=== PATIENT | male | born 1955 | race American Indian/Alaskan Native ===

== ENCOUNTER 2016-09-13 06:18 | Day surgery (SDC) | payer MEDICARE, BC ==
[2016-09-13 08:12] VITALS: BMI 26.9
[2016-09-13] MEDS ORDERED: Propofol 10 mg/ml Inj (20 ML) ONE (08:30)
[2016-09-13] MEDS ORDERED: Succinylcholine 200 mg/10 ml Inj IV ONE (08:30)
[2016-09-13] MEDS ORDERED: Rocuronium 10 mg/ml (5 ml) ONE (08:30)
[2016-09-13] MEDS ORDERED: Bupivacaine 0.5% Inj(30mL) ONE (08:31)
[2016-09-13] MEDS ORDERED: Lidocaine 1% Inj (20ml) ONE (08:31)
[2016-09-13] MEDS ORDERED: Midazolam 2 MG/2 ML VIAL ONE (09:39)
[2016-09-13] MEDS ORDERED: Etomidate 20 mg/10ml Inj IV ONE (09:39)
[2016-09-13] MEDS ORDERED: HYDROmorphone 0.5 mg/0.5 ml ISec IVP PRN (11:06)
--- NOTE | 2016-09-13 11:11 | PCM.SURG1 ---
Surgeon's Initial Post Op Note - Surgeon's Notes Surgeon: Jewels Dust Control Engineer: [id number] Type of Anesthesia: IV Sedation, Local Pre-Operative Diagnosis: Infected PD catheter Operative Findings: see op note Post-Operative Diagnosis: Infected PD catheter Operation Performed: Laparotomy, Infected PD catheter removal Specimen/Specimens Removed: PD catheter Estimated Blood Loss: EBL {In ML}: 5 Blood Products Given: N/A Drains Used: No Drains Post-Op Condition: Good Date of Surgery/Procedure: 09/13/16 Time of Surgery/Procedure: 09:30
[2016-09-13] MEDS ORDERED: Sodium Chloride 0.9% 1,000 ML IV SCH (11:15)
[2016-09-13] MEDS ORDERED: HYDROmorphone 0.5 mg/0.5 ml ISec ONE (11:53)
[2016-09-13] MEDS ORDERED: HYDROmorphone 0.5 mg/0.5 ml ISec IVP ONE (11:55)
[2016-09-13 12:07] VITALS: RESP 18
[2016-09-13] MEDS ORDERED: Oxycodone/Acetaminophen 5/325 mg Tab PO PRN (12:52)
[2016-09-13 13:12] VITALS: TEMP 97.7
[2016-09-13] MEDS ORDERED: Oxycodone/Acetaminophen 5/325 mg Tab ONE (14:45)
[2016-09-13] MEDS ORDERED: Oxycodone/Acetaminophen 5/325 mg Tab PO ONE (14:46)
[2016-09-13 15:37] VITALS: O2SAT 98
[2016-09-13 17:35] VITALS: BP 174/68; PULSE 56
[2016-09-13] MEDS ORDERED: Aspirin-Dipyridamole 200-25 mg ER Cap PO SCH (18:00)
[2016-09-14] MEDS ORDERED: Non Formulary Medication (Linaclotide [Linzess] 290 MCG) PO SCH (10:00)
[2016-09-17] MEDS ORDERED: Ergocalciferol 50,000 Intl Units Cap PO SCH ×2 (10:00)
--- NOTE | 2016-09-25 23:37 | PCM.OP ---
Operative Report - Operative Report Date of Surgery/Procedure: 09/13/16 Time of Surgery/Procedure: 11:00 Surgeon: Dr Donis Rural Carrier: Dr. Garcia, Anesthesia/Sedation: IV sedation Pre-Operative Diagnosis: Infected peritoneal dialysis catheter Post-Operative Diagnosis: same Indication for Surgery: Infected PD catheter Operative Findings: PD Catheter Procedure/Operation Description: Laparoptomy,. Removal of tunelled peritoneal dialysis catheter Estimated Blood Loss: 5cc Blood Replaced: none Complications: Intraperitoneally Ingrown catheter cuff, laparotomy for catheter removal Specimen: catheter tip for cultures Discharge & Condition: Patient discharged home to resume all his preop meds. Follow up in office in 2 weeks
--- NOTE | 2016-10-08 04:17 | OP ---
PROCEDURE DATE: 09/13/2016 PREOPERATIVE DIAGNOSIS: Infected peritoneal dialysis tunneled catheter. POSTOPERATIVE DIAGNOSIS: Infected peritoneal dialysis tunneled catheter. PROCEDURES PERFORMED: 1. Exploratory laparotomy. 2. Removal of the tunneled peritoneal dialysis catheter. SURGEON: Dr. Donis. SENIOR SAS DEVELOPER: Dr. Garcia. ANESTHESIOLOGIST: Dr. Stafford. TYPE OF ANESTHESIA: IV sedation, local anesthesia. ESTIMATED BLOOD LOSS: Minimal. SPECIMEN: Tip of the catheter for other cultures. The patient is 60-year-old male on renal dialysis who had for a period of time had peritoneal dialysis catheter inserted; however, subsequently patient developed symptoms of infection and catheter could not be used any longer and a decision was made to remove the catheter in order to alleviate his infection. DESCRIPTION OF PROCEDURE: The patient was brought to the operating room and placed on the operative table in supine position. The patient was connected to the EKG, blood pressure, and pulse oximetry monitors. The patient then underwent IV sedation, was prepped and draped in the usual sterile fashion. First then the extended time-out procedure took place and everybody in the room agreed as to the patient's identity diagnosis and procedure to be performed. Using lidocaine and some Marcaine, 2 areas of skin direct to overlying the catheter *------* cath were injected and careful dissection was done in order to free up the attachments of the catheter to the subcutaneous tissues. This was carefully done and then the extension of the peritoneal dialysis catheter was freed up, transected and removed. I then proceeded further towards the periumbilical incision where another *------* cath was located at the edge of the peritoneum. This was carefully dissected out; however, at some point, the catheter gave in and ruptured and an intraperitoneal portion of the catheter could not be retrieved. At this point, I decided to proceed with the small laparotomy incision just below the umbilicus and carefully dissected out through into the abdominal cavity. Careful reevaluation of the abdominal cavity revealed a peritoneal dialysis catheter which was firmly attached to adhesions at the anterior abdominal wall as well as to the lateral pelvic wall. This was carefully lysed and the catheter was detached and removed. The laparotomy was now carefully closed using #1 PDS in a running fashion. Subcutaneous tissues were closed using 3-0 Vicryl and the skin was closed with 4-0 Monocryl in all 4 wounds. The tip of the catheter was sent as a specimen for the cultures to the pathology lab. The patient tolerated the procedure well and there were no complication. The patient was awakened and transferred to recovery room for further observation. Chalo Donis MD
== END 2016-09-13 17:00 | disposition home or self-care (01) ==
LOC: SDS 06:18
PROVIDERS: ATTEND General Practice
DX: T85.71XA Infection and inflammatory reaction due to peritoneal dialysis catheter, initial encounter (principal); N18.6 End stage renal disease; I12.0 Hypertensive chronic kidney disease with stage 5 chronic kidney disease or end stage renal disease; E11.22 Type 2 diabetes mellitus with diabetic chronic kidney disease; I25.10 Atherosclerotic heart disease of native coronary artery without angina pectoris; Y84.8 Other medical procedures as the cause of abnormal reaction of the patient, or of later complication, without mention of misadventure at the time of the procedure
CPT/HCPCS: 49422; 87070; 87075; J0360; J0690; J1170; J2250; J2704; J3010; J7040

== ENCOUNTER 2018-01-08 13:41 | Inpatient (IN) | payer MEDICARE, BC ==
[2018-01-08 13:58] VITALS: BMI 25.8
--- NOTE | 2018-01-08 14:06 | ED PDOC ---
Arrival/HPI - General Chief Complaint: Weakness/Neurological Deficit Time Seen by Provider: 01/08/18 14:05 Historian: EMS EM Caveat: Acuity of Condition - History of Present Illness Narrative History of Present Illness (Text): 01/08/18 14:06 62 year old male whose past medical history includes CVA and chronic kidney disease(on dialysis), who was brought to the Emergency department by EMS for stroke evaluation and generalized weakness. Patient returns to the Emergency department complaining of generalized weakness for the past 24 hours. He received dialysis this morning when he started to feel disoriented and unable to speak clearly. EMS noted slight slurred speech, but denies history of left sided weakness from previous CVA. Limited HPI and ROS due to acuity of condition Time/Duration: Other (Right after dialysis) Symptom Onset: Sudden Symptom Course: Unchanged Severity Level: Moderate Activities at Onset: Rest Context: Other (while at dialysis center) Past Medical History - Provider Review Nursing Documentation Reviewed: Yes - Travel History Have you recently traveled outside [place] w/in the past 3 mons?: No - Infectious Disease Hx of Infectious Diseases: None - Tetanus Immunization Tetanus Immunization: Unknown - Cardiac Hx Pacemaker: No - Pulmonary Hx Respiratory Disorders: Yes - Neurological Hx Paralysis: No - HEENT Hx HEENT Disorder: No - Renal Hx Dialysis: Yes Type of Dialysis Access: L AV shunt Date of Last Dialysis Treatment: 01/08/18 Hx Renal Failure: Yes - Endocrine/Metabolic Hx Diabetes Mellitus Type 2: Yes - Hematological/Oncological Hx Blood Transfusions: No Hx Blood Transfusion Reaction: No - Integumentary Hx Dermatological Disorder: No - Musculoskeletal/Rheumatological Hx Musculoskeletal Disorders: No - Gastrointestinal Hx Gastrointestinal Disorders: No - Genitourinary/Gynecological Hx Genitourinary Disorders: No - Psychiatric Hx Emotional Abuse: No Hx Physical Abuse: No Hx Substance Use: Yes - Surgical History Hx Coronary Stent: Yes (2011 Coronary Stent Placement) Hx Tonsillectomy: Yes Hx Vascular Access Device: Yes (LEFT AV shunt for HD) Other/Comment: Peritoneal Dialysis access - Anesthesia Hx Anesthesia Reactions: No Hx Malignant Hyperthermia: No - Suicidal Assessment Feels Threatened In Home Enviroment: No Family/Social History - Physician Review Nursing Documentation Reviewed: Yes Family/Social History: No Known Family HX Smoking Status: Former Smoker Hx Alcohol Use: Yes Hx Substance Use: Yes Hx Substance Use Treatment: No Allergies/Home Meds Allergies/Adverse Reactions: Allergies No Known Allergies Allergy (Verified 12/16/15 00:13) Home Medications: Home Meds Medication Instructions Recorded Confirmed RX: Clopidogrel [Plavix] 75 mg PO DAILY 12/23/15 01/08/18 Ergocalciferol (Vitamin D2) 50,000 unit PO MON 09/11/16 01/08/18 [Vitamin D2] GlipiZIDE [Glucotrol] 5 mg PO DAILY 09/11/16 01/08/18 Linaclotide [Linzess] 290 mcg PO DAILY 09/11/16 01/08/18 RX: Carvedilol [Coreg] 12.5 mg PO BID 09/11/16 01/08/18 RX: amLODIPine [Norvasc] 10 mg PO QPM 09/11/16 01/08/18 RX: hydrALAZINE [Apresoline] 50 mg PO BID 09/11/16 01/08/18 Ketorolac Tromethamine [Toradol] 10 mg PO Q6H PRN 09/13/16 01/08/18 Review of Systems - Review of Systems Systems not reviewed;Unavailable: Acuity of Condition Constitutional: Other (generalized weakness) Neurological: Speech Changes Physical Exam Vital Signs Reviewed: Yes Vital Signs Temp Pulse Resp BP Pulse Ox 01/08/18 14:01 103.1 F H 118 H 18 95/56 L 96 01/08/18 13:42 103 F H 117 H 22 95/56 L 95 Temperature: Febrile Blood Pressure: Hypotensive Pulse: Tachycardic Appearance: Positive for: Well-Appearing Mental Status: Positive for: Alert and Oriented X 3 Finger Stick Blood Glucose: 173 - Systems Exam Head: Present: Atraumatic, Normocephalic Pupils: Present: PERRL Extroacular Muscles: Present: EOMI Conjunctiva: Present: Normal Mouth: Present: Moist Mucous Membranes Neck: Present: Normal Range of Motion Respiratory/Chest: Present: Clear to Auscultation, Good Air Exchange. No: Respiratory Distress, Accessory Muscle Use, Tachypneic Cardiovascular: Present: Normal S1, S2, Tachycardic. No: Murmurs Abdomen: Present: Other (Abdomen soft). No: Tenderness, Distention, Peritoneal Signs Back: Present: Normal Inspection Upper Extremity: Present: Normal Inspection, Other ( palpable AV fistula of left upper extremity with audible thrill.). No: Cyanosis, Edema Lower Extremity: Present: Normal Inspection. No: Edema Neurological: Present: GCS=15, CN II-XII Intact, Normal Sensory Function, Other (able to squeeze hand bilaterally; Unable to lift right lower extremity against gravity.). No: Speech Normal (mild dysarthria noted) Skin: Present: Warm, Dry, Normal Color. No: Rashes Psychiatric: Present: Alert, Oriented x 3, Normal Insight, Normal Concentration Medical Decision Making ED Course and Treatment: 01/08/18 14:06 Impression: 62 year old male who presents with generalized weakness for the past 24 hours and evaluation for possible stroke. Differential Diagnosis included but are not limited to: CVA Hypokalemia Fluid shift Sepsis Plan: -- VBG -- Head CT without contrast -- EKG -- Labs -- Cardiac enzymes -- Blood work -- Chest X-ray -- Blood culture -- O2 via nasal cannula -- Tylenol -- IV fluids -- Reassess and disposition Prior Visits: Notes and results from previous visits were reviewed. Patient was last seen in the emergency department on 12/20/15 for slurred speech and facial droop. He was diagnosed with CVA and admitted. Progress Notes: 01/08/18 13:57 Code stroke called. 01/08/18 14:32 Discussed case with (neurology) who requests brain MRI. 01/08/18 14:[address] Hall(radiologist)who has okayed MRI. 01/08/18 14:57 Patient's potassium noted to be 8.3 with Leukocytosis of 18. Will order hyperkalemia protocol. 01/08/18 15:[address] Flores(hospitalist) who says ICU is not needed at this time. He will continue to monitor and agrees with antibiotics coverage. He will ask patient for true primary. 01/08/18 16:[address] Vargas, who will follow-up with patient. 01/12/18 00:27 - Critical Care Critical Care Minutes: Other (40 minutes) - Lab Interpretations Lab Results: Lab Results 01/08/18 13:56: POC Glucose (mg/dL) 173 H I have reviewed the lab results: Yes - RAD Interpretation Narrative RAD Interpretations (Text): 01/08/18 14:[address] without Contrast: Dictated by: Dr.Peter Hall Impression: No evidence of acute infarct. No intracranial hemorrhage. Old lucanar infarcts of the left thalamus and basal ganglia/verdugo radiata and of the analia. Age- appropriate atrophy. The findings in this examination were discussed by telephone with at 2:40p.m. on 01/08/18. 01/08/18 16:11 Brain MRI without contrast: Dictator : Timbo Seaman MD FINDINGS: HEMORRHAGE: None DWI: No evidence of an acute or early subacute infarction. BRAIN PARENCHYMA: No mass effect or edema. Chronic microvascular ischemic changes. VENTRICLES: Unremarkable. No hydrocephalus. CRANIUM: Unremarkable. ORBITS: Grossly unremarkable. PARANASAL SINUSES/MASTOIDS: Clear VASCULAR SYSTEM: Skull base flow voids intact. OTHER FINDINGS: None. IMPRESSION: Chronic microvascular ischemic changes. No evidence of acute infarct. 01/08/18 16:12 Chest X-ray: Dictator : Juvenal Sun MD IMPRESSION: No active disease. Radiology Orders: 01/08/18 14:04 HEAD W/O (CODE STROKE) [CT] Stat 01/08/18 14:05 CHEST PORTABLE [RAD] Stat Salvage Engineer: Radiologist - EKG Interpretation EKG Interpretation (Text): 01/08/18 13:59 EKG shows sinus tachycardia at 110 bpm with PT wave noted in precordial leads. Interpreted by me. Interpreted by ED Physician: Yes Type: 12 lead EKG NIHSS Scale (Walls) Time Performed: 14:00 - How Severe is the Stoke Baseline Level of Consciousness: 0=Alert LOC to Questions: 0=Both comments correct LOC to commands: 0=Obeys both correctly Best Gaze: 0=Normal Visual: 0=No visual loss Facial: 0=Normal Motor Arm - Left: 0=No drift Motor Arm - Right: 0=No drift Motor Leg - Left: 0=No drift Motor Leg - Right: 3=No effort against gravity (falls immediately) Limb Ataxia: 0=Absent Sensory: 0=Normal Best Language: 0=No aphasia Dysarthia: 1=Mild to moderate slurring Extinction & Inattention (Neglect): 0=Normal, no object Score: 4 Risk Level: Minor Stroke Risk - Scribe Statement The provider has reviewed the documentation as recorded by the Scribshana Romeo Provider Scribe Attestation: All medical record entries made by the Scribe were at my direction and personally dictated by me. I have reviewed the chart and agree that the record accurately reflects my personal performance of the history, physical exam, medical decision making, and the department course for this patient. I have also personally directed, reviewed, and agree with the discharge instructions and disposition. Disposition/Present on Arrival - Present on Arrival Any Indicators Present on Arrival: Yes History of DVT/PE: Yes History of Uncontrolled Diabetes: Yes Urinary Catheter: No History of Decub. Ulcer: No History Surgical Site Infection Following: None - Disposition Have Diagnosis and Disposition been Completed?: Yes Diagnosis: CVA (cerebral vascular accident) Disposition: HOSPITALIZED Disposition Time: 16:15 Patient Plan: Admission Condition: FAIR
[2018-01-08] MEDS ORDERED: Sodium Chloride 0.9% 1,000 ML IV STA ×2 (14:11→18:45)
[2018-01-08 14:30] LABS: BASO # 0.02 K/mm3 (0.0-2.0); BASO % 0.1 % (0.0-3.0); GRAN # 16.05 (1.4-6.5); GRAN % 86.5 % (50.0-68.0); HEMOGLOBIN 11.9 g/dL (14.0-18.0); LYMPH # 1.1 (1.2-3.4); LYMPH % 5.7 % (22.0-35.0); MEAN CORPUSCULAR HGB CONC 33.3 g/dl (31.0-37.0); MEAN PLATELET VOLUME 10.9 fl (7.0-11.0); MONO # 1.4 (0.1-0.6); MONO % 7.7 % (1.0-6.0); RBC 3.84 10^6/uL (3.5-6.1); RED CELL DISTRIBUTION WIDTH 15.9 % (11.5-14.5); WHITE BLOOD COUNT 18.6 10^3/ul (4.5-11.0)
[2018-01-08 14:37] LABS: VENOUS BLOOD GAS BASE EXCESS 3.4 mmol/L (0.0-2.0); VENOUS BLOOD GAS PO2 69 mm/Hg (30-55); VENOUS BLOOD PH 7.48 (7.32-7.43)
[2018-01-08 14:41] LABS: INR 1.1; PARTIAL THROMBOPLASTIN TIME 26.7 Seconds (25.1-36.5); PROTHROMBIN TIME 12.6 SECONDS (9.4-12.5)
--- NOTE | 2018-01-08 14:51 | CT ---
Date of service: 01/08/2018 PROCEDURE: CT HEAD WITHOUT CONTRAST. HISTORY: weakness/slurred speech COMPARISON: 10/06/2012 TECHNIQUE: Axial computed tomography images were obtained through the head/brain without intravenous contrast. Radiation dose: Total exam DLP = 1019.72 mGy-cm. This CT exam was performed using one or more of the following dose reduction techniques: Automated exposure control, adjustment of the mA and/or kV according to patient size, and/or use of iterative reconstruction technique. FINDINGS: HEMORRHAGE: No intracranial hemorrhage. BRAIN: No mass effect or edema. Mild diffuse atrophy. Consistent with patient age. Old left basal ganglia/verdugo radiata lacunar infarct unchanged. Old left thalamic lacunar infarct, unchanged. Two pontine lacunar infarcts, larger on the left, new since prior examination. No evidence of acute infarct. VENTRICLES: Unremarkable. No hydrocephalus. CALVARIUM: Unremarkable. PARANASAL SINUSES: Unremarkable as visualized. No significant inflammatory changes. MASTOID AIR CELLS: Unremarkable as visualized. No inflammatory changes. OTHER FINDINGS: None. IMPRESSION: No evidence of acute infarct. No intracranial hemorrhage. Old lacunar infarcts of the left thalamus and basal ganglia/verdugo radiata and of the analia. Age-appropriate atrophy. The findings in this examination were discussed by telephone with Dr. Olivas at 2:40 p.m. on 01/08/2018.
[2018-01-08] MEDS ORDERED: Albuterol 0.083% Inhal Sol (2.5 mg/3 mL) UD INH STA (14:56)
[2018-01-08] MEDS ORDERED: Sodium Bicarbonate (8.4%) 50 Meq Syringe IVP ONE (14:56)
--- NOTE | 2018-01-08 15:22 | RAD ---
Date of service: 01/08/2018 PROCEDURE: CHEST RADIOGRAPH, 1 VIEW HISTORY: weakness COMPARISON: 09/11/2016 FINDINGS: LUNGS: Clear. PLEURA: No pneumothorax or pleural fluid seen. CARDIOVASCULAR: Normal. OSSEOUS STRUCTURES: No significant abnormalities. VISUALIZED UPPER ABDOMEN: Normal. OTHER FINDINGS: None. IMPRESSION: No active disease.
[2018-01-08 15:28] LABS: ALB/GLOB RATIO 0.9 (1.1-1.8); ALBUMIN 4.1 g/dL (3.0-4.8); CALCIUM 9.2 mg/dL (8.4-10.5)
[2018-01-08] MEDS ORDERED: cefTRIAXone 1 gm 1 GM/100 ML BAG IVPB STA (15:34)
[2018-01-08 15:39] LABS: TROPONIN I 0.03 ng/mL
--- NOTE | 2018-01-08 16:05 | MRI ---
Date of service: 01/08/2018 PROCEDURE: MRI BRAIN WITHOUT CONTRAST HISTORY: dysarthria w/ inability to elevate RLE on exam COMPARISON: None available. TECHNIQUE: Multiplanar, multisequence MR images of the brain were obtained without intravenous contrast enhancement. FINDINGS: HEMORRHAGE: None DWI: No evidence of an acute or early subacute infarction. BRAIN PARENCHYMA: No mass effect or edema. Chronic microvascular ischemic changes. VENTRICLES: Unremarkable. No hydrocephalus. CRANIUM: Unremarkable. ORBITS: Grossly unremarkable. PARANASAL SINUSES/MASTOIDS: Clear VASCULAR SYSTEM: Skull base flow voids intact. OTHER FINDINGS: None. IMPRESSION: Chronic microvascular ischemic changes. No evidence of acute infarct.
[2018-01-08] MEDS ORDERED: Aspirin-Dipyridamole 200-25 mg ER Cap PO SCH (18:45)
[2018-01-08] MEDS ORDERED: Vancomycin 500mg in NS 500 MG/100 ML BAG IVPB STA (18:46)
[2018-01-08 18:55] LABS: HDL CHOLESTEROL 26 mg/dL (29-60)
[2018-01-08 20:03] LABS: LDL CHOLESTEROL 70 mg/dL (0-129)
[2018-01-08] MEDS: Insulin Reg-LOW-Coverage SC SCH (22:44)
[2018-01-08] MEDS ORDERED: Pneumococcal 23-Valent Vaccine IM ONE (23:05)
[2018-01-09 07:14] LABS: BASO # 0.03 K/mm3 (0.0-2.0); BASO % 0.2 % (0.0-3.0); EOS % 0.1 % (1.5-5.0); GRAN # 10.59 (1.4-6.5); GRAN % 81.4 % (50.0-68.0); HEMOGLOBIN 12.4 g/dL (14.0-18.0); LYMPH # 1.1 (1.2-3.4); LYMPH % 8.8 % (22.0-35.0); MEAN CELL VOLUME 94.9 fl (80.0-105.0); MEAN CORPUSCULAR HEMOGLOBIN 30.1 pg (25.0-35.0); MEAN CORPUSCULAR HGB CONC 31.7 g/dl (31.0-37.0); MEAN PLATELET VOLUME 10.9 fl (7.0-11.0); MONO # 1.2 (0.1-0.6); MONO % 9.5 % (1.0-6.0); RBC 4.12 10^6/uL (3.5-6.1); RED CELL DISTRIBUTION WIDTH 15.8 % (11.5-14.5)
[2018-01-09] MEDS ORDERED: Vancomycin 1gm in NS 250ml 1 GM/250 ML BAG IVPB STA (07:23)
--- NOTE | 2018-01-09 07:38 | HP ---
DATE OF EXAM: HISTORY OF PRESENT ILLNESS: The patient is 62 years old, the patient of Dr. Witt, was sent from dialysis center after he was found to be lethargic and had slurred speech, so he was brought to the emergency room. He was also found to have temperature of 103.7. The patient denies any cough, congestion, no chest pain, no shortness of breath. He denies any nausea or vomiting. PAST MEDICAL HISTORY: Significant for: 1. Hepatitis C. 2. End-stage renal disease, on hemodialysis. 3. Non-insulin dependent diabetes. 4. Peripheral vascular disease. ALLERGIES: HE IS NOT ALLERGIC TO ANY MEDICATIONS. MEDICATIONS: Medications at home, he is on hydralazine 50 mg twice a day, clonidine 0.2 three times a day, amlodipine 10 mg daily, Linzess, isosorbide 60 mg daily, Lipitor 5 mg daily, vitamin D, Plavix 75 daily, Coreg 12.5 twice a day, PhosLo 667, mg bedtime and Aggrenox. SOCIAL HISTORY: He used to be a heavy smoker, quit 20 years ago. PHYSICAL EXAMINATION: GENERAL: He is sleepy, but arousable. VITAL SIGNS: His temperature of 103.7 upon arrival, at 05:30 it is 99.8, pulse 91, respirations 18 and blood pressure 126/70. LUNGS: Bilateral fair airflow. No rhonchi or crackle. HEART: S1 and S2 audible. ABDOMEN: Soft. Nontender. No rebound. No guarding. NEUROLOGICAL: The patient is lethargic, but no focal deficit noted. LABORATORY DATA: WBC is 18.6, hemoglobin 11.9, hematocrit 35.7 and platelets 188. PT 12.6, INR 1.10 and PTT 26.7. Chemistry: Sodium 135, potassium 4.4, chloride 94, CO2 of 26, BUN 26, creatinine 8, blood sugar of 208. Triglycerides 165, random blood sugar is 208. IMAGING: MRI of the brain is unremarkable. X-ray chest only shows chronic microvascular ischemic changes, no evidence of acute infarct. X-ray chest is negative. ASSESSMENT: 1. High-grade fever. 2. Leukocytosis, source unknown yet. 3. Sepsis syndrome. 4. End-stage renal disease, on hemodialysis. 5. Hypertension. 6. Dnt-ldohtwi-fhhmeraxt diabetes. 7. Hyperlipidemia. PLAN: The patient has failed swallowing eval, we will keep him n.p.o. We will give him IV fluid, empirically give him vancomycin 500 mg stat and Rocephin is [address] Witt and Dr. Grande has been consulted. Kali Stringer MD
[2018-01-09 08:01] LABS: ALBUMIN 3.9 g/dL (3.0-4.8); CALCIUM 9.4 mg/dL (8.4-10.5)
[2018-01-09] MEDS: Insulin Reg-LOW-Coverage SC SCH ×4 (08:27→23:00)
--- NOTE | 2018-01-09 10:36 | CARD ---
APPROVED REPORT Date of service: 01/08/2018 EKG Measurement Heart [id number] <Conclusion> Sinus tachycardia PRWP STTW changes c/w ischemia, new
[2018-01-09] MEDS: Aspirin-Dipyridamole 200-25 mg ER Cap PO SCH ×2 (12:11→18:11)
--- NOTE | 2018-01-09 13:10 | PN ---
DATE: 01/09/2018 SUBJECTIVE: Patient is 62 years old, seen and examined, looks much more alert, was able to tolerate food. PHYSICAL EXAMINATION: VITAL SIGNS: His temperature 100.1, pulse 91, respirations 19, and blood pressure 146/66. LUNGS: Bilateral good air flow. No rhonchi or crackle. HEART: S1, S2 audible. ABDOMEN: Soft, nontender. No rebound, no guarding. NEUROLOGIC: Patient is awake and alert, communicative. EXTREMITIES: Bilateral leg, no edema. He has Sherwood catheter in his left groin. LABORATORY DATA: WBC 13, hemoglobin 12.4, hematocrit 39.1, and platelets 145. Chemistry: Sodium 137, potassium 5.3, chloride 96, CO2 of 23. BUN 40, creatinine 10. Blood sugar is 122. Blood cultures are pending. Echocardiogram is pending. MRI of the brain is negative. ASSESSMENT: 1. Sepsis, source unknown yet, probably line sepsis. 2. Hypertension. 3. End-stage renal disease, on hemodialysis. 4. Cerebrovascular accident in the past. PLAN: So patient was given dose of vancomycin last night and he got another one this morning. We will discontinue his IV fluid. He has been started on meropenem, statin, and isosorbide. We will monitor his blood sugar. We will follow up patient in the a.m. Kali Stringer MD
--- NOTE | 2018-01-09 18:03 | CON ---
DATE OF CONSULTATION: 01/09/2018 REASON FOR CONSULTATION: Hyperkalemia, ESRD, fatigue. HISTORY OF PRESENT ILLNESS: The patient is a 62-year-old male, well known to me from outpatient hemodialysis. The patient was sent to the emergency room yesterday from dialysis because of fatigue and weakness. The patient denied any fever, chills. He denied any cough. He denied any shortness of breath. In the emergency room, he was found to be somewhat slurred speech, emotionally labile, crying. He was found to be hemodynamically stable. Blood pressure was somewhat low at 95/56, he had a temperature of 103, he was found to have an elevated WBC count of 18.6. This morning, his potassium was found to be 5.3, hence consultation is requested. PAST MEDICAL AND SURGICAL HISTORY: Hepatitis C, severe hypertension, ESRD, NIDDM, peripheral vascular disease, CVA, anemia of chronic kidney disease, diverticulosis, diverticulitis, failed PD, ESRD. FAMILY HISTORY: Noncontributory. SOCIAL HISTORY: Ex-smoker, no alcohol use, no IV drug abuse. MEDICATIONS AT HOME: Hydralazine 50 b.i.d., clonidine 0.2 t.i.d., amlodipine 10, Linzess, Imdur 60, glipizide 5, vitamin D 50,000, Plavix 75, Coreg 12.5 b.i.d., PhosLo, Lipitor, aspirin. ALLERGIES: NO KNOWN DRUG ALLERGIES. REVIEW OF SYSTEMS: All systems are reviewed, pertinent positives as mentioned in the history of presenting illness, rest unremarkable. PHYSICAL EXAMINATION: GENERAL: The patient is an elderly male, lying in bed. VITAL SIGNS: Blood pressure 115/54, heart rate 94, respiratory rate 18, temperature 100. HEENT: Normocephalic, atraumatic, positive pallor. NECK: Supple, no JVD. LUNGS: Bilateral equal entry, bilateral equal expansion, no rales. CARDIAC: S1 and S2, regular rate and rhythm, no murmur, no rub. ABDOMEN: Soft, nondistended, nontender, bowel sounds present. EXTREMITIES: No lower extremity edema. INTAKE AND OUTPUT: Not charted. LABORATORY DATA: WBC 13, hemoglobin 12.4, hematocrit 39, platelets 145. Sodium 137, potassium 5.3, chloride 96, CO2 of 23, BUN 40, creatinine 10.1, glucose 122, calcium 9.4, total protein 7.9, albumin 3.9. CURRENT MEDICATIONS: Aggrenox, insulin, Imdur 60, Lipitor 40, meropenem 250 every 12 hours, amlodipine 10, Tylenol, Zofran, vancomycin 1 g given this morning. ASSESSMENT: 1. Fever, leukocytosis, hypotension, sepsis,? source. 2. Oco-zajwcri-idhlxsfhk diabetes mellitus. 3. Hypertension. 4. History of cerebrovascular accident. 5. End-stage renal disease. 6. Hyperkalemia. PLAN: 1. Dialysis today, blood cultures x2 on dialysis. 2. Agree with empiric antibiotics. 3. Follow up blood cultures. 4. Hold antihypertensives for BP less than 120. 5. ID evaluation. 6. Neurology evaluation. Sabine Witt MD
--- NOTE | 2018-01-09 19:08 | CON ---
DATE: 01/09/2018 CHIEF COMPLAINT: Fever x1-2 days. HISTORY OF PRESENT ILLNESS: This is a 62-year-old male with a history of cerebrovascular accident, chronic renal failure on hemodialysis who was admitted through the emergency room from having weakness and feeling is having fevers and chills. He denies any chest pain. He has minimal cough. He has mild shortness of breath. No abdominal pain, diarrhea or constipation or bright red blood per rectum. No melena, dysuria, or frequency. REVIEW OF SYSTEMS: As stated 12-point review system is performed. PAST MEDICAL HISTORY: Significant for cerebrovascular accident, chronic renal failure on hemodialysis, coronary artery disease, hypertension, diabetes mellitus, peripheral vascular disease, and peripheral arterial disease. PAST SURGICAL HISTORY: Significant for cardiac catheterization with stent placement, tonsillectomy, left arm shunt, hepatitis B and hepatitis C, left arm vascular shunt. ALLERGIES: THE PATIENT HAS NO KNOWN ALLERGIES. MEDICATIONS: Reviewed at home include Apresoline, Catapres, Norvasc and Glucotrol. PHYSICAL EXAMINATION: GENERAL: He is in bed in no acute distress. He is responsive. VITAL SIGNS: Temperature of 103 in the emergency room, heart rate was 118 and blood pressure of 153, at this time it was down to 95/56 on admission with a respiratory rate of 22. HEENT: Unremarkable. NECK: Supple. LUNGS: Decreased breath sounds. HEART: Normal S1, S2. ABDOMEN: Soft, nontender. No organomegaly. No rebound or guarding. No masses. The patient does have a right groin catheter a left arm AV shunt. It appears to be intact. No evidence of infection. LABORATORY EXAMINATION: Reveals a white count of 18,600 and a hemoglobin of 11, platelets of 188. Coagulation is noted. Chemistry reveals BUN of 26, creatinine of 8. The patient had MRI of the head which is negative. CAT scan of the head which is negative. Chest x-ray which is negative. EKG: Results are not available. Review of orders reveals blood cultures were ordered and the patient was given ceftriaxone and a dose of vancomycin at 500 mg. ASSESSMENT AND PLAN: This is a 62-year-old male with cerebrovascular accident, chronic renal failure, hemodialysis, coronary artery disease, hypertension, diabetes, peripheral arterial disease, hepatitis B and hepatitis C who has a right groin access for dialysis presents with temperature of 103 with tachycardia, dyspnea and white count of 18,000. Systemic inflammatory response syndrome, I would suspected that he will to be bacteremic with positive blood cultures most likely from the groin site. We will give the patient vancomycin and meropenem and we will also order a CT of the abdomen and pelvis, the pending dhaliwal cultures. He should have an HIV test because of his age as indicated. We will also discuss with PMD. Calni Grande MD
--- NOTE | 2018-01-09 19:41 | CON ---
DATE: 01/09/2018 CHIEF COMPLAINT: Transient slurred speech. HISTORY OF PRESENT ILLNESS: This is a 62-year-old man with past medical history of end-stage renal disease, on hemodialysis, hypertension, shu-nsppodv-rhwdvuddy diabetes mellitus, hyperlipidemia, who came in from dialysis center and was found to be lethargic with slurred speech, reportedly ER found to have an elevated temperature of 103.7. Currently, the blood cultures are negative. MRI of the brain showed no acute intracranial abnormalities, chronic ischemic changes; he has an old left MCA territory lacunar infarct. Currently, no focal weakness of the extremities. and his hiccups. PAST MEDICAL HISTORY: As above. SOCIAL HISTORY: No illicit drug use. Smoking, heavy smoker, quit 20 years ago. FAMILY HISTORY: Noncontributory. REVIEW OF SYSTEMS: Fourteen-point review of systems is negative except as per the HPI. ALLERGIES: NO KNOWN DRUG ALLERGIES. PHYSICAL EXAMINATION GENERAL: The patient is lying in bed, in no acute distress. VITAL SIGNS: Temperature 100, pulse rate 94, blood pressure 115/54, respiratory rate 18 and oxygen saturation 90% on room air. HEENT: Atraumatic, normocephalic. PERRLA. Extraocular muscles intact. NECK: Supple. No JVD, no adenopathy noted. LUNGS: Clear to auscultation. No adventitious sounds. HEART: S1, S2. Normal rate and rhythm. No murmurs, rubs, or gallops. ABDOMEN: Soft, nontender, and nondistended. Bowel sounds are present. EXTREMITIES: No clubbing. No cyanosis. Peripheral pulses 2+ felt bilaterally. NEUROLOGIC: The patient is alert and oriented to person, place and year. Recall after 5 minutes is 0/3. Poor attention span. Slow thought process. Cranial nerves II through XII intact. Motor Exam: Slightly increased tone throughout.. Moves all extremities equally. No pronator drift seen. Sensory: Decreased light touch and pinprick up to the calves bilaterally. Decreased vibration of the toes. DTRs are 2+ throughout and 1 at both knees and absent at the ankles. Coordination: Akiejr-pd-swig intact. No dysmetria noted. Gait is deferred for now. LABORATORY DATA: Sodium 137, potassium 5.3, chloride 96, CO2 of 24, BUN 4, creatinine 10.1, random blood glucose 122, phosphorus is 6. IMPRESSION: Transient slurred speech is likely secondary to possible transient ischemic attack from respect to his hypertension, dyslipidemia and kan-vagrdkt-ouywvtlth diabetes mellitus, caused by sepsis syndrome given that he has leukocytosis and high grade fever, possibly line sepsis. At this time, continue with antibiotics. Continue with aspirin 81 and Lipitor 40 for stroke prevention and avoid systolic and diastolic hypoperfusion to the brain. Physical therapy and occupational therapy orientation and continue with current medical management. Arthur Taylor MD
[2018-01-09 21:17] LABS: HEPATITIS B SURFACE AG Negative (NEGATIVE)
[2018-01-09 21:22] LABS: HEPATITIS B CORE AB NEGATIVE (NEGATIVE)
[2018-01-10] MEDS: Insulin Reg-LOW-Coverage SC SCH ×4 (08:45→22:10)
[2018-01-10] MEDS: Aspirin-Dipyridamole 200-25 mg ER Cap PO SCH ×2 (09:59→17:51)
--- NOTE | 2018-01-10 10:27 | CARD ---
APPROVED REPORT Date of service: 01/09/2018 EXAM: Two-dimensional and M-mode echocardiogram with Doppler and color Doppler. Other Information Quality : GoodRhythm : INDICATION Infection:Rule out subacute bacterial endocarditis ENDOCARDITIS 2D DIMENSIONS Left Atrium (2D)3.9 (1.6-4.0cm)IVSd1.2 (0.7-1.1cm) LVDd4.9 (3.9-5.9cm)PWd0.9 (0.7-1.1cm) LVDs3.1 (2.5-4.0cm)FS (%) 37.5 % LVEF (%)67.0 (>50%) M-Mode DIMENSIONS Aortic Root2.80 (2.2-3.7cm)Aortic Cusp Exc.1.80 (1.5-2.0cm) Aortic Valve AoV Peak Ullpgglp722.0cm/s Mitral Valve MV E Ppppnynq82.4cm/sMV A Mbfdgbxa63.4cm/sE/A ratio0.9 TDI E/Lateral E'0.0E/Medial E'0.0 LEFT VENTRICLE The left ventricle is normal size. There is normal left ventricular wall thickness. The left ventricular function is normal. The left ventricular ejection fraction is within the normal range. There is normal LV segmental wall motion. RIGHT VENTRICLE The right ventricle is normal size. ATRIA The left atrium size is normal. The right atrium size is normal. The interatrial septum is intact with no evidence for an atrial septal defect. AORTIC VALVE The aortic valve is normal in structure. MITRAL VALVE The mitral valve is normal in structure. TRICUSPID VALVE The tricuspid valve is normal in structure. PULMONIC VALVE The pulmonic valve is not well visualized. GREAT VESSELS The aortic root is normal in size. PERICARDIAL EFFUSION There is no pericardial effusion. <Conclusion> The left ventricle is normal size. There is normal left ventricular wall thickness. The left ventricular function is normal. No vegetation seen.
[2018-01-10] MEDS ORDERED: Barium Sulfate Susp 2.1% w/v, 2.0% w/w 450 mL Bottle PO ONE (10:33)
--- NOTE | 2018-01-10 14:54 | PN ---
DATE: 01/10/2018 SUBJECTIVE: Patient is in bed in no acute distress, nontoxic. PHYSICAL EXAMINATION: VITAL SIGNS: On exam, the patient's temperature is down this morning at 98.3, T-max yesterday was 100.5 and blood pressure is 140/60, respiratory rate 20, heart rate of 102. HEENT: Unremarkable. NECK: Supple. LUNGS: Have decreased breath sounds. HEART: Normal S1, S2. ABDOMEN: Soft, nontender. LABORATORY EXAMINATION: Reveals a white count of 13,000 which is improved from 18,000, hemoglobin of 12, platelets of 145. Chemistries reveals the BUN is 40, creatinine of 10, procalcitonin of 14.28. Serology and hepatitis B core antibody is reactive. Microbiology reveals the blood cultures are negative and sputum cultures are pending and echo is pending. The patient's chest x-ray is reported to be negative. ASSESSMENT AND PLAN: A 62-year-old male with history of cerebrovascular accident, chronic renal failure, on hemodialysis, admitted through emergency room because of weakness and fevers and chills, although he does not have any abdominal pain and currently with systemic inflammatory response syndrome with negative blood cultures, currently on vancomycin intermittently and meropenem. We will order a CAT scan of the abdomen and pelvis and appears to be fevers, appears to be responding and white count appears to be responding but the etiology of this is not entirely clear. Must rule out urine versus abdomen. We will also request a urinalysis and urine culture, although the patient is on hemodialysis and in urinary bladder on dialysis, the patient has always a reservoir of 200 mL and sometimes worse, straight cath may be required to do a urinalysis and urine culture, CAT scan of the abdomen and pelvis and we will check on the final culture results. Calin Grande MD
--- NOTE | 2018-01-10 19:00 | CT ---
Date of service: 01/10/2018 PROCEDURE: CT Chest, Abdomen and Pelvis without intravenous contrast HISTORY: follow up , fevers COMPARISON: 07/03/2012 CT abdomen and pelvis. TECHNIQUE: Radiation dose: Total exam DLP = 1225.48 mGy-cm. This CT exam was performed using one or more of the following dose reduction techniques: Automated exposure control, adjustment of the mA and/or kV according to patient size, and/or use of iterative reconstruction technique. FINDINGS: CT CHEST WITHOUT CONTRAST: LUNGS: Clear. No nodule, mass or consolidation. Scarring at the lung bases similar findings identified on a CT of the abdomen and pelvis from 07/03/2012. Bullous changes identified primarily upper lobe distribution. MEDIASTINUM: Unremarkable. Normal caliber aorta and pulmonary arterial trunk. Normal size heart. Atherosclerotic calcifications identified primarily aortic arch. LYMPH NODES: Unremarkable. PLEURA: Unremarkable. No pneumothorax. No pleural fluid. BONES: Unremarkable. OTHER FINDINGS: None. CT ABDOMEN AND PELVIS: LIVER: Unremarkable. No gross lesion or ductal dilatation. GALLBLADDER AND BILE DUCTS: Unremarkable. PANCREAS: Unremarkable. No gross lesion or ductal dilatation. SPLEEN: Unremarkable. ADRENALS: Unremarkable. No mass. KIDNEYS AND URETERS: Atrophic kidneys bilaterally likely medical renal disease, progressive finding compared to the prior study. VASCULATURE: Atherosclerotic calcification and mural plaque present. Findings are seen throughout the aorta Venous access catheter likely dialysis catheter inserted via right common femoral vein approach. The tip of the catheter is at the level of the right atrium. BOWEL: Fecal impaction, constipation without mechanical obstruction. APPENDIX: No abnormalities to suggest acute appendicitis. No right lower quadrant inflammatory processes identified. PERITONEUM: Unremarkable. No free fluid. No free air. LYMPH NODES: Unremarkable. No enlarged lymph nodes. BLADDER: Diffuse bladder wall thickening with perivesical inflammatory change likely cystitis. Bladder REPRODUCTIVE: Unremarkable. BONES: No acute fracture. OTHER FINDINGS: None. IMPRESSION: THORAX: No significant findings. ABDOMEN RETROPERITONEUM AND PELVIS: Findings consistent with cystitis. Atrophic kidneys/evidence of medical renal disease. These are severe findings. Additional benign and/or incidental findings described above.
--- NOTE | 2018-01-10 22:29 | PN ---
DATE: 01/10/2018 SUBJECTIVE: The patient is 62 years old, seen and examined in dialysis. Feels a lot better. Eating better. No nausea or vomiting. No diarrhea. PHYSICAL EXAMINATION: VITAL SIGNS: He is afebrile earlier; however, he spiked fever of 100.3; pulse 99; respirations 20; blood pressure 151/76. LUNGS: Bilateral fair airflow. No rhonchi or crackle. HEART: S1 and S2 audible. ABDOMEN: Soft. Nontender. No rebound. No guarding. NEUROLOGICAL: He is awake, alert, oriented, communicative. EXTREMITIES: Moves all extremity. LABORATORY EXAM: Blood sugar is 138. Had CT scan of the abdomen and pelvis and chest done. Seemed to be unremarkable. ASSESSMENT AND PLAN: 1. Sepsis with leukocytosis. Fever seemed to be resolving. Cultures are negative. 2. End-stage renal disease, on hemodialysis. Echocardiogram is negative for vegetation. 3. History of cerebrovascular accident. 4. Generalized weakness. Source still unclear. CT of chest, abdomen and pelvis are negative. I will talk to Dr. Witt if his right Shiley need to be removed. All the blood culture and echocardiogram are negative. The patient is at this point on meropenem and he was given dose of vancomycin. We will follow up his CBC in the a.m. Kali Stringer MD
--- NOTE | 2018-01-10 23:02 | PN ---
DATE: 01/10/2018 SUBJECTIVE: Patient is seen lying in bed. He is awake. He is alert. He is comfortable. He had dialysis earlier today. He denies any pain. He denies any shortness of breath. PHYSICAL EXAMINATION: GENERAL: Elderly male lying in bed. VITAL SIGNS: Blood pressure 151/76, heart rate 99, respiratory rate 20, temperature 98.6. HEENT: Normocephalic, atraumatic, positive pallor. NECK: Supple, no JVD. LUNGS: Bilateral equal air entry, no rales appreciated. CARDIAC: S1 and S2, regular rate and rhythm, no murmur, no rub. ABDOMEN: Soft, nondistended, nontender, bowel sounds present. EXTREMITIES: No lower extremity edema. LABORATORY DATA: No new labs. CURRENT MEDICATIONS: Aggrenox, Imdur, Lipitor, meropenem 250 every 12 hours, amlodipine 10, Thorazine, Tylenol, Zofran. ASSESSMENT: 1. Fever, leukocytosis ?source. Patient has a right femoral PermCath. 2. Recent cerebrovascular accident. 3. Qdi-iyttxpb-nehubrtlk diabetes mellitus. 4. Hypertension. 5. End-stage renal disease. PLAN: 1. Follow up cultures. 2. Empiric antibiotics. 3. Stable dialysis today. 4. Continue phosphate binders. 5. Continue fingerstick monitoring. 6. Continue current antihypertensive. Sabine Witt MD
[2018-01-11 07:53] LABS: BASO # 0.03 K/mm3 (0.0-2.0); BASO % 0.3 % (0.0-3.0); EOS # 0.1 (0.0-0.7); EOS % 1.1 % (1.5-5.0); GRAN # 6.29 (1.4-6.5); GRAN % 71.3 % (50.0-68.0); LYMPH # 1.4 (1.2-3.4); LYMPH % 15.6 % (22.0-35.0); MEAN CELL VOLUME 94.4 fl (80.0-105.0); MEAN CORPUSCULAR HEMOGLOBIN 29.5 pg (25.0-35.0); MEAN CORPUSCULAR HGB CONC 31.3 g/dl (31.0-37.0); MEAN PLATELET VOLUME 10.4 fl (7.0-11.0); MONO % 11.7 % (1.0-6.0); RBC 3.39 10^6/uL (3.5-6.1); RED CELL DISTRIBUTION WIDTH 15.6 % (11.5-14.5); WHITE BLOOD COUNT 8.8 10^3/uL (4.5-11.0)
[2018-01-11] MEDS: Insulin Reg-LOW-Coverage SC SCH ×4 (09:16→22:44)
[2018-01-11] MEDS: Aspirin-Dipyridamole 200-25 mg ER Cap PO SCH ×2 (11:08→17:47)
--- NOTE | 2018-01-11 13:56 | PN ---
DATE: 01/11/2018 SUBJECTIVE: The patient is currently comfortable. He has just completed breakfast. He is completely alert and lucid. He tolerated yesterday's dialysis well. A 1500 mL of fluid were removed. All of the patient's cultures remain negative. He does remain on empiric antibiotic therapy. MEDICATIONS: Medications list reviewed. The patient is currently on Aggrenox, sliding scale insulin, Imdur, Lipitor, meropenem, vancomycin, Norvasc, Thorazine, Tylenol p.r.n. and Zofran p.r.n. OBJECTIVE: INTAKE AND OUTPUT: Intake is 760 and output is 1500 mL with dialysis. VITAL SIGNS: Present blood pressure 129/62, pulse of 81, temperature 97.8 and respiratory rate 20. HEENT: Exam shows him to be normocephalic and atraumatic. Conjunctivae are pale. Sclerae are nonicteric. NECK: Supple. No neck vein distention. CHEST: Clear to auscultation and percussion. No rales, rhonchi or wheezing. CARDIOVASCULAR: Shows a regular rate and rhythm without audible murmurs, rubs or gallops. ABDOMEN: Soft. Bowel sounds normal. No rebound, guarding or masses. EXTREMITIES: Show a dialysis PermCath in his right groin. Positive bruit and thrill over his left upper extremity AV fistula which has not been used in a long period of time because of infection in the past. No lower extremity cyanosis, clubbing or edema. LABORATORY DATA AND IMAGING STUDIES: Abdominopelvic and chest CT scan shows possible cystitis. No other signs of infection or abnormalities. CBC; last white blood cell count 8.8, down from 18.6; hemoglobin 10.0, down from a high of 12.4; platelet count is normal at 187,000. Chemistries are unremarkable. BUN 40 with a creatinine of 10.1. Last potassium 5.3, calcium 9.4 and phosphorus 6.0. The patient is on binder therapy. Albumin level is 3.9. HIV is negative. Hep B serologies are positive for antibody and negative for antigen. Microbiology, all blood cultures are negative at 48 hours and 24 hours. ASSESSMENT: 1. Fever and elevated white blood cell count, sources entirely unclear. Possible cystitis on his CT imaging studies. The patient remains on empiric antibiotic therapy. The patient makes no urine. The patient has a right femoral PermCath which has been in for quite some period of time, exit site appears clean and cultures are negative. I am reluctant to have this catheter removed unless it is felt to be the source of his infection and sepsis. 2. Past history of cerebrovascular accident. 3. History of end-stage renal disease on chronic maintenance hemodialysis Saturday, Saturday and Saturday. The patient's next dialysis will be on 01/13/2018. 4. History of hypertension. Blood pressure controlled on present medical therapy. 5. History of noninsulin-dependent diabetes mellitus, controlled. 6. History of secondary hyperparathyroidism. The patient will continue on binder therapy. 7. History of peripheral vascular disease. The patient will continue Aggrenox and statin therapy. PLAN: 1. Followup cultures. 2. Discussion with Infectious Disease in light of the fact that all cultures are negative. For duration of antibiotics. 3. Restart phosphorus binders. 4. Continue present cardiovascular meds. 5. Next hemodialysis scheduled for 01/13/2018. Timbo Fournier MD
--- NOTE | 2018-01-11 15:33 | PN ---
DATE: 01/11/2018 SUBJECTIVE: The patient is 62 years old, seen and examined, sitting in chair, seems to be comfortable. No fever. No chills. Eating and tolerating. PHYSICAL EXAMINATION: VITAL SIGNS: He is afebrile, pulse 81, respirations 20, blood pressure 163/74. LUNGS: Bilateral good airflow. No rhonchi or crackle. HEART: S1 and S2 audible. ABDOMEN: Soft. Nontender. No rebound. No guarding. NEUROLOGICAL: The patient is awake and alert. He has some dysarthria. Otherwise, he is awake and alert and comprehensive. Understand and answer appropriately. He has generalized weakness and difficulty walking. LABORATORY EXAM: WBC is 8.8, hemoglobin 10, hematocrit 32, platelet of 187. Chemistry: Blood sugar is 138. His blood cultures are all negative. His CT scan of the abdomen and pelvis is unremarkable. ASSESSMENT AND PLAN: Lethargy and slurred speech, probably secondary to sepsis. MRI of the brain negative for any acute infarct and source of sepsis is unclear. Questionable cystitis. However, the patient responded to broad-spectrum antibiotic. He is currently afebrile. He is still weak to walk. We will request for TCU evaluation. In the meantime, we will continue the patient on current medications. He is on meropenem and he was given a couple of doses of vancomycin. If he is accepted in TCU, he will be transferred to TCU for rehabilitation. Kali Stringer MD
--- NOTE | 2018-01-11 16:53 | PN ---
DATE: 01/11/2018 SUBJECTIVE: The patient is seen earlier this morning. No fevers and no chills. No nausea, no vomiting. She did have fevers last night and no abdominal pain or diarrhea. PHYSICAL EXAMINATION: VITAL SIGNS: On exam, temperature is 97, T-max was 100.3 yesterday, blood pressure is 150/60, respiratory rate of 20. HEENT: Examination of HEENT is unremarkable. NECK: Supple. LUNGS: Have decreased breath sounds.. HEART: Normal S1, S2. ABDOMEN: Soft, nontender. LABORATORY DATA: Laboratory examination reveals white count is down to 8.8, hemoglobin of 10, platelets of 187. Chemistries are noted and the patient has a creatinine of 10 and elevated procalcitonin 14 and finished up with creatinine of 10 and LFTs are normal. Alk phos is normal. Hepatitis B core antibody is positive reactive. HIV is negative and microbiology reveals repeat blood cultures are negative, sputum cultures are negative. Nares MRSA is negative. The patient had a CAT scan of the chest and abdomen, which shows lungs to be no consolidation and consistent with cystitis, diffuse bladder thickening. ASSESSMENT AND PLAN: A 62-year-old male with history of cerebrovascular accident, chronic renal failure, hemodialysis, admitted through the emergency room because of weakness and found to have fevers and chills and with sepsis most likely secondary to cystitis. No urinalysis is available and no urine cultures available although, the patient is a dialysis, urinary bladder and dialysis. The patient has cancer and can have a reservoir of 200 mL and should have a straight cath with urinalysis and urine culture discussed with the residents at this point and if the patient remains next 24 hours afebrile, he did have low grade temperature of 100.3 yesterday, it seems to be responding, currently on meropenem day #3. We will request a urinalysis and urine culture again. Should have a straight cath. Patient's with dialysis do have urine reservoir, which serves as focus and nidus of infection and if he continue to have cystitis, should have urology evaluation to rule out any underlying pathology. Today is day #3 of meropenem and should have 5-7 days of antibiotics. Calin Boghossian, MD [facility] # [id number]
[2018-01-12] MEDS: Insulin Reg-LOW-Coverage SC SCH ×4 (08:32→22:25)
[2018-01-12] MEDS: Aspirin-Dipyridamole 200-25 mg ER Cap PO SCH ×2 (09:33→17:04)
--- NOTE | 2018-01-12 09:52 | PN ---
DATE: 01/12/2018 SUBJECTIVE: The patient has no complaints of any chest pain. No shortness of breath. No headaches or dizziness. PHYSICAL EXAMINATION: VITAL SIGNS: Temperature is 98.5, pulse of 81, blood pressure is 111/60, respiration is 20. GENERAL: The patient is lying in bed, flat, comfortable. HEENT: No oral lesion. Anicteric sclerae. Moist mucosa. NECK: No JVD, adenopathy, or thyromegaly. CARDIOVASCULAR: S1 and S2, regular. No murmurs, rubs, or gallops. LUNGS: Clear to auscultation bilaterally. No wheeze, rales, or rhonchi. ABDOMEN: Bowel sounds are positive, soft, nontender and nondistended. EXTREMITIES: No cyanosis, clubbing or edema. LABORATORY DATA: White count of 8.8, hemoglobin 10, creatinine is 10.1. Potassium is 5.3. ASSESSMENT: 1. Sepsis. 2. End-stage renal disease, on hemodialysis. 3. Dyslipidemia. 4. Secondary hyperparathyroidism. PLAN: The patient is currently comfortable. He has blood cultures that have been negative. The patient's white count has improved. Initially, it was 18.6. He is getting dialysis. The patient is on meropenem for antibiotics. He is on Lipitor for dyslipidemia. The patient is on PhosLo for secondary hyperparathyroidism. He is on Zofran as needed for nausea. The patient is on Aggrenox with a history of stroke. The patient is on heart-healthy diet. Currently, he is comfortable. Campos Castillo MD
--- NOTE | 2018-01-12 12:49 | PN ---
DATE: 01/12/2018 SUBJECTIVE: The patient is in bed, was seen earlier today, in no acute distress, nontoxic. PHYSICAL EXAMINATION: VITAL SIGNS: On exam, temperature is 98, blood pressure is 111/60, respiratory rate of 18. HEENT: Examination of HEENT is unremarkable. NECK: Supple. LUNGS: Have decreased breath sounds. HEART: Normal S1, S2. ABDOMEN: Soft. LABORATORY DATA: Laboratory examination reveals a white count of 8.8, hemoglobin of 10 and BUN of 40, creatinine is 10. Serology: The patient's HIV is negative, hep B core total antibody is positive, core B IgM is negative. ASSESSMENT AND PLAN: A 62-year-old with a history of cerebrovascular accident; chronic renal failure, on hemodialysis. Admitted through the emergency room with weakness, found to have fever and chills with sepsis, most likely secondary to cystitis. The patient does have renal failure, on hemodialysis. They do have a reservoir of 200 mL. Should have had straight catheterization and urinalysis. Today is day #4 of meropenem. No culture results are available and no urinalysis is available. The patient has been afebrile all of 01/11/2018. We will follow the patient. If the patient continues to be afebrile, maybe able to switch to p.o. Vantin at 100 mg p.o. b.i.d. to complete 7-10 days of antibiotics. Calin Grande MD
--- NOTE | 2018-01-12 15:09 | PN ---
DATE: 01/12/2018 SUBJECTIVE: The patient is currently seen lying supine, comfortable in bed. There are possible plans for him to transfer to the TCU. He remains afebrile. He remains on empiric antibiotic therapy. All his cultures are negative. MEDICATIONS: Medication list reviewed. The patient is on Aggrenox, insulin, Imdur, Lipitor, meropenem, Norvasc, PhosLo, Thorazine, Tylenol p.r.n. and Zofran p.r.n. OBJECTIVE: INTAKE/OUTPUT: Intake is 520, output is 0. VITAL SIGNS: Blood pressure 139/67, temperature 98.8, respiratory rate is 18 with a pulse of 66. HEENT: Normocephalic, atraumatic. Conjunctivae are pale. Sclerae nonicteric. NECK: Supple. No neck vein distention. CHEST: Clear to auscultation and percussion. No rales, rhonchi or wheezing. CARDIOVASCULAR: Shows regular rate and rhythm without audible murmurs, rubs or gallops. ABDOMEN: Soft. Bowel sounds normal. No rebound, guarding or masses. EXTREMITIES: Show dialysis PermCath in his right groin. No evidence for exit site infection. Positive bruit. Positive thrill over his left upper extremity AV fistula, which has not been used in a long time. No lower extremity cyanosis, clubbing or edema. LABORATORY DATA AND IMAGING: Initial CT scan showed possible cystitis. CBC: White blood cell count down to 88.8, hemoglobin 10, platelet count is 187,000. Chemistries none recent. Labs were done predialysis on 01/09/2018. Microbiology: Cultures are negative at 72 hours and 48 hours. ASSESSMENT: 1. Status post fevers, leukocytosis. Sources entirely unclear. Possible cystitis on a CT scan of his abdomen and pelvis with the patient does not make urine. He is completing a course of empiric antibiotic therapy pending negative cultures. The patient states he is having difficulty ambulating and there is consideration for him to be transferred to the TCU. 2. Past history of cerebrovascular accident. 3. History of end-stage renal disease. The patient will continue chronic maintenance hemodialysis Saturday, Saturday and Saturday. 4. History of hypertension. Blood pressure controlled on present medication. 5. History of noninsulin-dependent diabetes mellitus, controlled. 6. History of secondary hyperparathyroidism. The patient will continue binder therapy. Repeat phosphorus levels with his next dialysis. 7. History of peripheral vascular disease. The patient remains on statin therapy and Aggrenox. PLAN: 1. Agree with possible transfer to the TCU as the patient states he has not been ambulating well. 2. Duration of IV antibiotics. Cultures appear to be negative. 3. Continue renal diet and binder therapy. 4. Continue cardiovascular meds. 5. Next hemodialysis is scheduled on 01/13/2018. Timbo Fournier MD
[2018-01-13 01:32] VITALS: RESP 18
[2018-01-13 08:19] VITALS: O2SAT 100
[2018-01-13] MEDS: Insulin Reg-LOW-Coverage SC SCH ×2 (08:23→11:30)
[2018-01-13 09:53] LABS: BASO # 0.03 K/mm3 (0.0-2.0); BASO % 0.5 % (0.0-3.0); EOS # 0.3 (0.0-0.7); EOS % 4.4 % (1.5-5.0); GRAN # 4.78 (1.4-6.5); HEMOGLOBIN 9.7 g/dL (14.0-18.0); LYMPH # 0.6 (1.2-3.4); LYMPH % 8.8 % (22.0-35.0); MEAN CELL VOLUME 92.4 fl (80.0-105.0); MEAN CORPUSCULAR HEMOGLOBIN 29.7 pg (25.0-35.0); MEAN CORPUSCULAR HGB CONC 32.1 g/dl (31.0-37.0); MEAN PLATELET VOLUME 10.3 fl (7.0-11.0); MONO # 0.7 (0.1-0.6); MONO % 11.3 % (1.0-6.0); RBC 3.27 10^6/uL (3.5-6.1); RED CELL DISTRIBUTION WIDTH 16.4 % (11.5-14.5); WHITE BLOOD COUNT 6.4 10^3/uL (4.5-11.0)
[2018-01-13] MEDS: Aspirin-Dipyridamole 200-25 mg ER Cap PO SCH (10:00)
--- NOTE | 2018-01-13 10:28 | PN ---
DATE: 01/13/2018 SUBJECTIVE: The patient is in bed, in no acute distress. PHYSICAL EXAMINATION: VITAL SIGNS: On exam, temperature is 98, blood pressure is 140/70, respiratory rate of 18, heart rate of 91. HEENT: Examination of HEENT is unremarkable. NECK: Supple. LUNGS: Have decreased breath sounds. HEART: Normal S1, S2. ABDOMEN: Soft, nontender. LABORATORY DATA: Laboratory examination reveals a white count of 8.8, hemoglobin of 10, platelets of 187. Chemistries are noted. BUN of 40, creatinine of 10. Procalcitonin is 14. Serology is noted. Microbiology is reviewed. Review of orders reveals the patient to be on meropenem. ASSESSMENT AND PLAN: A 62-year-old with a history of cerebrovascular accident; chronic renal failure, on hemodialysis who is found to have fevers and chills and sepsis with cystitis. Today is day #5 of meropenem. Maybe able to switch to p.o. Vantin 100 mg p.o. b.i.d. to complete 7-10 days total. The patient is much improved. Calin Grande MD
[2018-01-13] MEDS ORDERED: Doxercalciferol 4 mcg/2 ml Inj IV ONE (10:30)
[2018-01-13 10:50] LABS: ALB/GLOB RATIO 0.9 (1.1-1.8); ALBUMIN 3.3 g/dL (3.0-4.8); CALCIUM 8.3 mg/dL (8.4-10.5)
[2018-01-13 16:00] VITALS: BP 155/70; PULSE 66; TEMP 98.7
--- NOTE | 2018-01-13 16:55 | PN ---
DATE: 01/13/2018 SUBJECTIVE: The patient is seen in the dialysis unit. He is awake. He is alert. He is comfortable. He is afebrile. PHYSICAL EXAMINATION: GENERAL: Elderly male, lying in bed. VITAL SIGNS: Blood pressure 155/70, heart rate 66, respiratory rate 18, temperature 98.7. HEENT: Normocephalic, atraumatic, positive pallor. NECK: Supple, no JVD. LUNGS: Bilateral equal air entry, bilateral equal expansion. CARDIAC: S1 and S2, regular rate and rhythm, no murmur, no rub. ABDOMEN: Soft, nondistended, nontender, bowel sounds present. EXTREMITIES: No lower extremity edema. LABORATORY DATA: WBC 6.4, hemoglobin 9.7, hematocrit 30, platelets 183. Sodium 138, potassium 3.7, chloride 99, CO2 of 30, BUN 37, creatinine 7.7, glucose 131, calcium 8.3. Blood cultures, no growth. Sputum culture, no growth. CURRENT MEDICATIONS: Aggrenox, insulin, Imdur, Lipitor, meropenem 250 every 12, amlodipine 10, PhosLo, Thorazine, Zofran. ASSESSMENT: 1. Fever, leukocytosis, weakness. All resolved. 2. Recent cerebrovascular accident. 3. Noninsulin-dependent diabetes mellitus. 4. Hypertension. 5. Hepatitis C. 6. End-stage renal disease. 7. Anemia of chronic kidney disease. PLAN: 1. Stable dialysis. 2. No definite source found for the leukocytosis and fever, ? discontinue antibiotics. 3. Physical therapy. 4. Discharge planning to subacute rehab. Sabine Witt MD
--- NOTE | 2018-01-14 09:37 | DS ---
HISTORY OF PRESENT ILLNESS: The patient is a 62-year-old, was admitted when he was found to be lethargic and had slurred speech. Initial impression was CVA, but MRI was negative. The patient had high-grade fever of 103. Blood culture and urine culture were sent. CT of the abdomen and pelvis was done, showed cystitis only, probably he had UTI from stagnant urine that he has in the bladder. PHYSICAL EXAMINATION: GENERAL: He is awake, alert, oriented, communicative. VITAL SIGNS: He is afebrile, pulse 66, respiration 18, blood pressure 155/70. LUNGS: Bilateral fair airflow, no rhonchi or crackles. HEART: S1 and S2 audible. ABDOMEN: Soft and nontender. No rebound, no guarding. NEUROLOGIC: The patient is awake, alert, oriented, able to communicate. LABORATORY DATA: WBC is 6.4, hemoglobin 9.7, hematocrit 30.2, platelets 183. Chemistry: Sodium 138, potassium 3.7, chloride 99, CO2 of 30, BUN 37, creatinine 7.7. Blood sugar of 141. ASSESSMENT AND PLAN: 1. Sepsis, probably urinary source. Blood culture and urine culture negative. 2. History of cerebrovascular accident. MRI negative for acute stroke. 3. End-stage renal disease, on hemodialysis. 4. Hypertension. 5. Hyperlipidemia. 6. Deconditioning and difficulty walking. PLAN: The patient needs rehab, so he is being transferred to [facility] where he can get physical therapy and hemodialysis in there. Kali Stringer MD
== END 2018-01-13 18:27 | DRG 871 ==
LOC: ED 13:41 → ERH 15:49 → 2RSO 18:21 → 5RSO 01-10 14:09
PROVIDERS: ADMIT Hospitalist; ATTEND Internal Medicine
PROC: 3E03329 Introduction of Other Anti-infective into Peripheral Vein, Percutaneous Approach (ICD-10-PCS; principal; 2018-01-08)
PROC: 5A1D70Z Performance of Urinary Filtration, Intermittent, Less than 6 Hours Per Day (ICD-10-PCS; 2018-01-09)
PROC: 5A1D70Z Performance of Urinary Filtration, Intermittent, Less than 6 Hours Per Day (ICD-10-PCS; 2018-01-13)
PROC: 5A1D70Z Performance of Urinary Filtration, Intermittent, Less than 6 Hours Per Day (ICD-10-PCS; 2018-01-13)
DX: A41.9 Sepsis, unspecified organism (principal); N30.90 Cystitis, unspecified without hematuria; N18.6 End stage renal disease; I12.0 Hypertensive chronic kidney disease with stage 5 chronic kidney disease or end stage renal disease; B19.10 Unspecified viral hepatitis B without hepatic coma; N25.81 Secondary hyperparathyroidism of renal origin; E11.22 Type 2 diabetes mellitus with diabetic chronic kidney disease; Z99.2 Dependence on renal dialysis; R47.81 Slurred speech; E87.5 Hyperkalemia; E78.5 Hyperlipidemia, unspecified; D63.1 Anemia in chronic kidney disease; I25.10 Atherosclerotic heart disease of native coronary artery without angina pectoris; E11.51 Type 2 diabetes mellitus with diabetic peripheral angiopathy without gangrene; B19.20 Unspecified viral hepatitis C without hepatic coma; R26.2 Difficulty in walking, not elsewhere classified; Z86.73 Personal history of transient ischemic attack (TIA), and cerebral infarction without residual deficits; Z79.84 Long term (current) use of oral hypoglycemic drugs; Z79.02 Long term (current) use of antithrombotics/antiplatelets; Z95.5 Presence of coronary angioplasty implant and graft; Z87.891 Personal history of nicotine dependence

== ENCOUNTER 2018-04-22 10:16 | Outpatient (CLI) | payer MEDICARE, BC | END 2018-04-22 10:17 | disposition home or self-care (01) | LOC: RAD 10:16 ==